=== PATIENT | female | born 1970 | race Two or more races ===

== ENCOUNTER 2018-12-27 08:56 | Emergency (ER) | payer SELFPAY ==
[~2018-12-27] VITALS: Ht 157.5 cm; Wt 72.6 kg
[2018-12-27 09:44] VITALS: BP 115/70
[2018-12-27] MEDS ORDERED: ACETAMINOPHEN 325 MG TAB PO ONE (10:00)
== END 2018-12-27 11:17 | disposition home or self-care (01) ==
LOC: ER 08:58
DX: J03.90 Acute tonsillitis, unspecified (principal)